=== PATIENT | male | born 1980 | race African-American/Black ===

== ENCOUNTER 2023-05-16 05:10 | Emergency (ER) | payer OTHER ==
[2023-05-16 05:27] VITALS: BP 130/80; PULSE 62; RESP 24; TEMP 98.1; BMI 26.6
[2023-05-16] MEDS ORDERED: ACETAMINOPHEN 1000 MG/100 ML BAG IVPB ONE (05:35)
[2023-05-16] MEDS ORDERED: CYCLOBENZAPRINE HCL 10 MG TABLET (FP) PO ONE (05:36)
[2023-05-16] MEDS ORDERED: KETOROLAC TROMETHAMINE 15 MG/ML VIAL IVPUSH ONE (05:36)
[2023-05-16] MEDS ORDERED: LIDOCAINE 4% PATCH TP ONE ×2 (05:37→05:58)
[2023-05-16] MEDS ORDERED: CYCLOBENZAPRINE HCL 10 MG TABLET (FP) ONE (05:57)
[2023-05-16] MEDS ORDERED: ACETAMINOPHEN INJECTION 100 ML IVPB ONE (05:57)
[2023-05-16] MEDS ORDERED: KETOROLAC TROMETHAMINE 15 MG/ML VIAL ONE (05:58)
[2023-05-16] MEDS ORDERED: DEXAMETHASONE SOD PHOSPHATE 10 MG/1 ML VIAL ONE (06:04)
[2023-05-16] MEDS ORDERED: DEXAMETHASONE SOD PHOSPHATE 10 MG/1 ML VIAL IVPUSH ONE (06:05)
[2023-05-16 06:26] LABS: BASO % 1.2 % (0-2.0); EOS % 1.3 % (0-4.5); HEMATOCRIT 44.8 % (35.4-49); HEMOGLOBIN 14.9 GM/dL (11.7-16.9); LYMPH % 48.3 % (8-40); MCH 31.2 pg (25.7-33.7); MCHC 33.3 g/dl (32.0-35.9); MEAN CELL VOLUME 93.5 fl (80-96); MEAN PLT VOLUME 7.1 fl (7.5-11.1); MONO % 9.5 % (3.8-10.2); NEUT % 39.7 % (42.8-82.8); PLATELET COUNT 208 10^3/uL (134-434); RBC 4.79 M/mm3 (4.00-5.60); RDW 13.4 % (11.9-15.9); WHITE BLOOD COUNT 5.9 K/mm3 (4.0-10.0)
[2023-05-16 06:42] LABS: POTASSIUM 3.6 mmol/L (3.5-5.1)
[2023-05-16 06:44] LABS: ALBUMIN 3.6 g/dl (3.4-5.0); BLOOD UREA NITROGEN 16.5 mg/dL (7-18)
[2023-05-16 06:49] LABS: BILIRUBIN,TOTAL 0.3 mg/dL (0.2-1); TOT PROT 7.2 g/dl (6.4-8.2)
[2023-05-16] MEDS ORDERED: LIDOCAINE PATCH REMOVAL MC SCH (22:00)
== END 2023-05-16 11:08 | disposition home or self-care (01) ==
LOC: JER 05:10
PROC: 3E033NZ Introduction of Analgesics, Hypnotics, Sedatives into Peripheral Vein, Percutaneous Approach (ICD-10-PCS; principal; 2023-05-16)
PROC: 3E033GC Introduction of Other Therapeutic Substance into Peripheral Vein, Percutaneous Approach (ICD-10-PCS; 2023-05-16)
DX: M54.10 Radiculopathy, site unspecified (principal); M54.2 Cervicalgia; R07.9 Chest pain, unspecified; M79.621 Pain in right upper arm; R20.2 Paresthesia of skin
CPT/HCPCS: 36415; 71045-TC-FY; 72125-TC; 80053; 84484; 85025; 93005; 93010; 99285-25; J0131; J1100